=== PATIENT | male | born 1990 ===

== ENCOUNTER 2024-05-02 15:23 | Inpatient (IN) | payer MEDICAID, OTHER, SELFPAY ==
[2024-05-02 15:30] VITALS: BP 122/68; BP 133/82; PULSE 78; PULSE 86; RESP 18; TEMP 36.8; O2SAT 100; O2SAT 96; BMI 25.1
[2024-05-02 15:44] VITALS: RESP 16
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
[2024-05-02 16:00] LABS: Appearance Urine Clear; Color Urine Yellow; Glucose Urine UA Negative (Negative); Leukocyte Esterase Urine Negative (Negative); Nitrite Urine Negative (Negative); Specific Gravity - Urine 1.025 (1.005-1.025); Urine Blood Negative (Negative); Urine Ketones Trace mg/dL (Negative); Urine Protein Negative (Neg-Trace)
[2024-05-02 16:09] LABS: Amphetamine Screen Urine Not Detected (Not Detect); Barbiturates, Urine Not Detected (Not Detect); Benzodiazepines Screen Urine Not Detected (Not Detect); Buprenorphine Scr Not Detected (Not Detect); Cannabinoid Screen Urine Not Detected (Not Detect); Cocaine Screen Urine Not Detected (Not Detect); Fentanyl, urine Not Detected (Not Detect); Methadone Screen, Urine Not Detected (Not Detect); Opiate Screen Urine Not Detected (Not Detect); Oxycodone Screen Urine Not Detected (Not Detect); Phencyclidine Screen Urine Not Detected (Not Detect)
[2024-05-02 16:15] LABS: MANUAL DIFF FLAG NO
[2024-05-02 16:23] LABS: Basophils Percent Auto 0.5 % (0-2); Eosinophils Absolute Auto 0.2 X10*3/uL (0.0-0.4); Eosinophils Percent Auto 2.1 % (0-4); Hematocrit 42.9 % (42.0-52.0); Hemoglobin 15.4 g/dl (14.0-18.0); Imm Gran Abs Auto 0.04 X10*3/uL (0.00-0.03); Imm Gran Pct Auto 0.5 % (0.0-0.4); Lymphocytes Percent Auto 23.8 % (20-40); Mean Corpuscular HGB Conc 35.9 g/dl (31.0-36.0); Mean Corpuscular Hemoglobin 32.6 pg (27.0-33.0); Mean Corpuscular Volume 90.9 fL (80.0-98.0); Mean Platelet Volume 11.6 fL (9.4-12.4); Monocytes Absolute Auto 0.8 X10*3/uL (0.1-1.2); Monocytes Percent Auto 9.4 % (2-11); Neutrophils Absolute Auto 5.2 x10*3/uL (2.0-8.3); Neutrophils Percent Auto 63.7 % (45-73); Platelet Count 289 X10*3/uL (160-400); Red Blood Count 4.72 X10*6/uL (4.60-5.80); Red Cell Distribution Width 12.6 % (11.0-16.0); White Blood Count 8.2 X10*3/uL (4.8-10.8)
[2024-05-02 16:48] LABS: Alanine Aminotransferase 22 U/L (0-40); Albumin Level 4.3 g/dL (3.5-5.0); Alkaline Phosphatase 64 U/L (39-117); Anion Gap 12 (12-20); Aspartate Amino Transferase 31 U/L (5-37); Bilirubin Total 0.2 mg/dL (0.0-1.0); Blood Urea Nitrogen 21 mg/dL (9-16); Calcium 10.3 mg/dL (8.4-10.2); Carbon Dioxide 28 mmol/L (22-29); Chloride 103 mmol/L (96-108); Creatinine Clr Calc Pharmacy 98.3; Estimated Glomerular Filt Rate > 60; Ethanol < 10 mg/dL; Glucose Random 97 mg/dL (60-115); Potassium 4.1 mmol/L (3.3-5.1); Sodium 139 mmol/L (135-145); Total Protein 7.4 g/dL (6.5-8.0)
--- NOTE | 2024-05-02 18:39 | ED.PSYCH ---
HPI - Psych General Chief Complaint: Psychiatric Symptoms Stated Complaint: Section 12 SI, [facility] [place] [facility] Time Seen by Provider: 05/02/24 16:03 Source: patient Mode of arrival: EMS Limitations: no limitations History of Present Illness HPI Narrative: Patient is a 33-year-old male who presents to the emergency department via EMS on a section 12 by N in the community; [facility], has been experiencing increasing suicidal ideations endorsing a plan to hang himself, also reporting auditory hallucinations telling him to ?pop people's car tires?. He is calm and cooperative, denies any physical complaints. Reports compliance with his medications, he is feeling unsafe, and requesting to go inpatient Related Data Home Medications ?Medication ?Instructions ?Recorded ?Confirmed clonidine HCl 0.1 mg tablet 0.1 mg PO DAILY PRN anxiety 05/02/24 05/02/24 diphenhydramine HCl 25 mg capsule 50 mg PO DAILY insomnia 05/02/24 05/02/24 (Banophen) divalproex 500 mg tablet,delayed 500 mg PO BID depressive disorder 05/02/24 05/02/24 release (Depakote) lorazepam 0.5 mg tablet 0.5 mg PO DAILY anxiety attack 05/02/24 05/02/24 Allergies Allergy/AdvReac Type Severity Reaction Status Date / Time aspirin Allergy Unknown hives Verified 05/02/24 15:36 Review of Systems Review of Systems: Yes all other systems are reviewed and are negative [facility] Past Medical History Attestation statement: The following information was validated with the patient. Source: old records reviewed Social History Social History Smoked in Last 30 Days: Yes Use of substances other than those prescribed or required for medical reasons: No Advance Directives: No Advance Directives Information Provided: No Physical Exam Vital Signs: Vital Signs: Last Vital Signs Temp 98.2 F 05/02/24 15:30 Pulse 78 05/02/24 15:30 Resp 16 05/02/24 15:44 BP 122/68 05/02/24 15:30 Pulse Ox 96 05/02/24 15:30 O2 Del Method Room Air 05/02/24 15:30 BMI result Body Mass Index 25.1 Appearance: Alert.?Oriented to person, place and time. No acute distress.?Normal affect. Eyes: Pupils equal, round and reactive to light.? ENT: Pharynx normal.?? Neck: Normal inspection.? Neck supple.?? CVS: Heart sounds normal. Normal heart rate and rhythm.? Pulses normal.?? Respiratory: No respiratory distress.? Lung sounds clear to auscultation bilaterally?? Abdomen: Soft and non-tender. Normoactive bowel sounds.? Skin: Skin warm and dry.? Normal skin color.? ? Extremities: No lower extremity edema. Neuro: Moves all extremities spontaneously. Sensation intact bilaterally. CN II-XII intact. No focal neuro deficits. Ambulates with normal steady gait. Medical Decision Making Medical Decision Making [facility] Narrative: Patient is a 33-year-old male who presents emergency department for evaluation, on a section 12 for suicidal ideations as per HPI. Overall he is calm and cooperative, vital signs are stable nontoxic in appearance. He offers no physical complaints in his physical examination is benign. Plan to obtain serum labs for medical clearance. Patient was evaluated by N in the community and has already been made an inpatient bed search. Differential Diagnosis Differential Diagnoses: The differential diagnosis associated with the presentation includes (Suicidal ideations, hallucinations) Admission/Observation Consideration of admission/observation: Escalation of care including admission/observation considered Placed in physician observation so that bed search can ensue; 18:45, speaking clear full sentences, no respiratory distress, vitals stable. Consult Healthcare Provider Management of the patient was discussed with: Behavioral Health Provider (See narrative above) Lab Data [facility] Lab Attestation statement: I reviewed the patient's lab results. CBC is without leukocytosis anemia or thrombocytopenia. No electrolyte derangement. Mildly elevated BUN, creatinine within normal range, encouraging oral fluids. Urinalysis without evidence of infection. MEJIA negative alcohol level not detectable. 05/02/24 16:11 05/02/24 16:11 Labs: Lab Results 05/02/24 05/02/24 Range/Units 15:47 16:11 WBC 8.2 (4.8-10.8) X10*3/uL RBC 4.72 (4.60-5.80) X10*6/uL Hgb 15.4 (14.0-18.0) g/dl Hct 42.9 (42.0-52.0) % MCV 90.9 (80.0-98.0) fL MCH 32.6 (27.0-33.0) pg MCHC 35.9 (31.0-36.0) g/dl RDW 12.6 (11.0-16.0) % Plt Count 289 (160-400) X10*3/uL MPV 11.6 (9.4-12.4) fL Immature Gran % (Auto) 0.5 H (0.0-0.4) % Neut % (Auto) 63.7 (45-73) % Lymph % (Auto) 23.8 (20-40) % [place] % (Auto) 9.4 (2-11) % Eos % (Auto) 2.1 (0-4) % Baso % (Auto) 0.5 (0-2) % Lymph # (Auto) 2.0 (1.2-4.9) X10*3/uL [place] # (Auto) 0.8 (0.1-1.2) X10*3/uL Eos # (Auto) 0.2 (0.0-0.4) X10*3/uL Baso # (Auto) 0.0 (0.0-0.2) X10*3/uL Abs Immat Gran (auto) 0.04 H (0.00-0.03) X10*3/uL Absolute Neuts (auto) 5.2 (2.0-8.3) x10*3/uL Absolute Nucleated RBC 0.000 (0.0-0.012) X10*3/uL Nucleated RBC % (auto) 0.0 (0.0-0.2) /100WBC Sodium 139 (135-145) mmol/L Potassium 4.1 (3.3-5.1) mmol/L Chloride 103 (96-108) mmol/L Carbon Dioxide 28 (22-29) mmol/L Anion Gap 12 (12-20) BUN 21 H (9-16) mg/dL Creatinine 0.98 (0.5-1.4) mg/dL Estim Creat Clear Calc 98.3 Estimated GFR > 60 Random Glucose 97 (60-115) mg/dL Calcium 10.3 H (8.4-10.2) mg/dL Total Bilirubin 0.2 (0.0-1.0) mg/dL AST 31 (5-37) U/L ALT 22 (0-40) U/L Alkaline Phosphatase 64 (39-117) U/L Total Protein 7.4 (6.5-8.0) g/dL Albumin 4.3 (3.5-5.0) g/dL Urine Color Yellow Urine Appearance Clear Urine pH 6.0 (5.0-9.0) Ur Specific [place] 1.025 (1.005-1.025) Urine Protein Negative (Neg-Trace) mg/dL Urine Glucose (UA) Negative (Negative) mg/dL Urine Ketones Trace (Negative) mg/dL Urine Blood Negative (Negative) Urine Nitrite Negative (Negative) Ur Leukocyte Esterase Negative (Negative) Urine Opiates Screen Not Detected (Not Detect) Ur Buprenorphine Scrn Not Detected (Not Detect) ng/mL Ur Oxycodone Screen Not Detected (Not Detect) ng/mL Urine Methadone Screen Not Detected (Not Detect) ng/mL Urine Fentanyl Screen Not Detected (Not Detect) Ur Barbiturates Screen Not Detected (Not Detect) Ur Phencyclidine Scrn Not Detected (Not Detect) Ur Amphetamines Screen Not Detected (Not Detect) U Benzodiazepines Scrn Not Detected (Not Detect) Urine Cocaine Screen Not Detected (Not Detect) U Marijuana (THC) Screen Not Detected (Not Detect) Ethyl Alcohol < 10 mg/dL Independent Historian Clinical information obtained from an independent historian. History obtained from or confirmed by: EMS Discharge Plan Discharge Clinical Impression: Suicidal ideation Patient Disposition: Still a Patient Prescriptions: No Action clonidine HCl 0.1 mg tablet 0.1 mg PO DAILY PRN (Reason: anxiety) divalproex [Depakote] 500 mg tablet,delayed release (DR/EC) 500 mg PO BID lorazepam 0.5 mg tablet 0.5 mg PO DAILY diphenhydramine HCl [Banophen] 25 mg capsule 50 mg PO DAILY Interventions: [place]-Suicide Risk Severity Scale Last Done: 05/02/24 15:44 Print Language: Divehi
[2024-05-03 06:30] VITALS: BP 121/53; PULSE 57; TEMP 36.8; O2SAT 100
[2024-05-03] MEDS: Divalproex Sodium 500 MG TABLET.DR PO ×2 (09:14→20:52)
[2024-05-03] MEDS: LORazepam 0.5 MG TABLET PO (09:14)
[2024-05-03] MEDS: diphenhydrAMINE HCL 25 MG CAPSULE 50 MG PO (09:14)
--- NOTE | 2024-05-03 12:50 | PC.NURSE ---
patient seen yesterday by PINEDA and made section 12 inpatient bedsearch
[2024-05-03 15:31] VITALS: BP 160/55; PULSE 75; RESP 18; TEMP 36.6; O2SAT 100
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
[2024-05-03 19:43] VITALS: BP 129/66; PULSE 82; RESP 18; O2SAT 97
[2024-05-03] MEDS: traZODone HCL 50 MG TABLET PO (20:52)
[2024-05-04 07:00] VITALS: BMI 33.6
[2024-05-04 08:00] VITALS: BP 125/70; PULSE 70; RESP 16; TEMP 36.6; O2SAT 99
[2024-05-04 08:30] LABS: Estimated Average Glucose 105 mg/dL; Hemoglobin A1c % 5.3 % (<6.0)
[2024-05-04 08:41] LABS: Cholesterol 158 mg/dL (<200); HDL Cholesterol 44 mg/dL (>40); LDL Cholesterol Calculated 91 mg/dL (<100); Triglycerides 116 mg/dL (<150)
[2024-05-04] MEDS: LORazepam 0.5 MG TABLET PO (09:16)
[2024-05-04] MEDS: diphenhydrAMINE HCL 25 MG CAPSULE 50 MG PO (09:16)
[2024-05-04] MEDS: Divalproex Sodium 500 MG TABLET.DR PO ×2 (09:16→21:57)
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
[2024-05-04 20:00] VITALS: BP 120/76; PULSE 85; TEMP 37.1; O2SAT 98
[2024-05-04] MEDS: traZODone HCL 50 MG TABLET PO (21:57)
[2024-05-05 08:00] VITALS: BP 123/65; PULSE 64; RESP 16; TEMP 36.5; O2SAT 100
[2024-05-05] MEDS: diphenhydrAMINE HCL 25 MG CAPSULE 50 MG PO (10:22)
[2024-05-05] MEDS: LORazepam 0.5 MG TABLET PO (10:22)
[2024-05-05] MEDS: Divalproex Sodium 500 MG TABLET.DR PO ×2 (10:23→20:48)
--- NOTE | 2024-05-05 17:43 | P.PNPSI_ITS ---
Subjective Subjective Date of Service: 05/05/24 Reason For Visit: Depression Subjective Notes: Conditional Voluntary Healthcare Proxy: No Guardianship: No Medical Problems Affecting Mental Status: No Interim History: Pt spending time in bed today. Declines to meet with team and risk specialist. Denies questions about treatment, sx, concerns. I feel comfortable. Declines med review for improved sx mgt of agitation/aggression. Medication Compliance: Yes Side effects from medications: No Attending Groups: No Review of Systems Acute medical concerns: No Medical Review of Systems: unchanged Review of Systems Review of Systems Yes all other systems are reviewed and are negative (denies) Mental Status Exam Mental Status Exam Patient Appearance: Appropriate Patient Orientation: Person, Place, Time and Situation Level of Consciousness: Alert Patient Behavior: Guarded, Talkative, Cooperative, Suspicious, Anxious, Resistive to Care, Avoidant, Isolative and Good Eye Contact Mood Description: Constricted Affect Description: Constricted Patient Cognition Impaired: Yes Ability to Follow Directions: Good Speech Pattern: Spontaneous Speech and Soft-Spoken Memory Description: Episodic Impaired Delusions: Paranoid Ideation Perceptual Disturbances: Depersonalization and Derealization Thought Process: Distracted and Rumination Thought Content: positive for [place], positive for Suicidal Ideation (denies) and positive for Homicidal Ideation (denies) Depressive Symptoms: Diff. Making Decisions and Low Self Esteem Judgement: Fair Diagnostics Vital Signs (24Hr): Vital Signs - 24 hr 05/04/24 20:00 Temperature 98.7 F Pulse Rate 85 Blood Pressure 120/76 Pulse Oximetry 98 Oxygen Delivery Method Room Air BMI result Body Mass Index 33.6 Labs 05/02/24 16:11 05/02/24 16:11 Labs: Laboratory Results - last 48 hr 05/04/24 08:04 Estimat Average Glucose 105 Hemoglobin A1c % 5.3 Triglycerides 116 Cholesterol 158 LDL Cholesterol, Calc 91 HDL Cholesterol 44 Medications Medications Current Medications Acetaminophen (Acetaminophen 325 Mg Tablet) 650 mg PO Q6H PRN PRN Reason: Headache/Pain Mild Scale (1-3) Al Hydroxide/Mg Hydroxide (Magnesium Hydrox/Alum Hydrox 30 Ml Oral.Susp) 30 ml PO Q6H PRN PRN Reason: Heartburn/Nausea Clonidine HCl (Clonidine Hcl 0.1 Mg Tablet) 0.1 mg PO DAILY PRN; Protocol PRN Reason: anxiety Diphenhydramine HCl (Diphenhydramine Hcl 25 Mg Capsule) 50 mg PO DAILY LIZA Last Admin: 05/05/24 10:22 Dose: 50 mg Divalproex Sodium (Divalproex Sodium 500 Mg Tablet.Dr) 500 mg PO BID [facility] Last Admin: 05/05/24 10:23 Dose: 500 mg Hydroxyzine HCl (Hydroxyzine Hcl 25 Mg Tablet) 25 mg PO Q6H PRN PRN Reason: Anxiety Lorazepam (Lorazepam 0.5 Mg Tablet) 0.5 mg PO DAILY [facility] Last Admin: 05/05/24 10:22 Dose: 0.5 mg Magnesium Hydroxide (Milk Of Magnesia 30 Ml Oral.Susp) 30 ml PO DAILY PRN PRN Reason: Constipation Nicotine (Nicotine 21 Mg Patch.Td24) 21 mg TRANSDERMA DAILY PRN PRN Reason: smoking cessation Nicotine Polacrilex (Nicotine Polacrilex 2 Mg Gum) 4 mg BUCCAL Q2H PRN PRN Reason: Nicotine Cravings Olanzapine (Olanzapine 5 Mg Tablet) 5 mg PO TID PRN PRN Reason: agitation Trazodone HCl (Trazodone Hcl 50 Mg Tablet) 50 mg PO BEDTIME MRX1 PRN PRN Reason: Insomnia Last Admin: 05/04/24 21:57 Dose: 50 mg Allergies Allergies Allergy/AdvReac Type Severity Reaction Status Date / Time aspirin Allergy Unknown hives Verified 05/02/24 15:36 Assessment & Plan Assessment & Plan (1) Schizoaffective disorder: Status: Acute Code(s): F25.9 - Schizoaffective disorder, unspecified (2) PTSD (post-traumatic stress disorder): Status: Acute Code(s): F43.10 - Post-traumatic stress disorder, unspecified (3) Polysubstance use disorder: Status: Acute Code(s): F19.90 - Other psychoactive substance use, unspecified, uncomplicated Plan 05/05/24: Valproate level 05/06. Continue to encourage engagement in treatment. Patient educated on: therapeutic strategies Informed Consent: further education needed Reason for continued inpatient stay Substantial Risk for: harm to self, harm to others and rapid decompensation Time Spent With Patient Time: Total time managing care of this patient today ____ minutes.
[2024-05-05 20:00] VITALS: BP 128/91; PULSE 89; RESP 18; TEMP 37.1; O2SAT 100
[2024-05-05] MEDS: OLANZapine 5 MG TABLET PO (20:48)
[2024-05-05] MEDS: hydrOXYzine HCL 25 MG TABLET PO (20:48)
[2024-05-05] MEDS: traZODone HCL 50 MG TABLET PO (20:48)
[2024-05-06 08:00] VITALS: BP 112/56; PULSE 62; RESP 18
[2024-05-06] MEDS: LORazepam 0.5 MG TABLET PO (08:13)
[2024-05-06] MEDS: Divalproex Sodium 500 MG TABLET.DR PO ×2 (08:13→21:20)
[2024-05-06] MEDS: diphenhydrAMINE HCL 25 MG CAPSULE 50 MG PO (08:13)
--- NOTE | 2024-05-06 09:48 | P.PNPSI_ITS ---
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 When asked how his mood was he said no and that it was a miracle he did not throw something when he was woken up earlier today with labs. Patient says he has auditory hallucinations but does not think anything is going to help. However he was willing to retry Risperdal. Mental Status Exam Mental Status Exam Patient Appearance: Appropriate Patient Orientation: Person, Place, Time and Situation Level of Consciousness: Alert Patient Behavior: Guarded, Talkative, Cooperative, Suspicious, Anxious, Resistive to Care, Avoidant, Isolative and Good Eye Contact Mood Description: Constricted Affect Description: Constricted Patient Cognition Impaired: Yes Ability to Follow Directions: Good Speech Pattern: Spontaneous Speech Memory Description: Episodic Impaired Hallucinations: Auditory Delusions: Paranoid Ideation Perceptual Disturbances: Depersonalization and Derealization Thought Process: Distracted and Rumination Thought Content: positive for [place], positive for Suicidal Ideation (denies) and positive for Homicidal Ideation (denies) Depressive Symptoms: Diff. Making Decisions and Low Self Esteem Judgement and Insight: Impaired Diagnostics Vital Signs (24Hr): Vital Signs - 24 hr 05/05/24 20:00 05/06/24 08:00 Temperature 98.7 F Pulse Rate 89 62 Respiratory Rate 18 18 Blood Pressure 128/91 H 112/56 L Pulse Oximetry 100 Oxygen Delivery Method Room Air BMI result Body Mass Index 33.6 Labs 05/02/24 16:11 05/02/24 16:11 Medications Medications Current Medications Acetaminophen (Acetaminophen 325 Mg Tablet) 650 mg PO Q6H PRN PRN Reason: Headache/Pain Mild Scale (1-3) Al Hydroxide/Mg Hydroxide (Magnesium Hydrox/Alum Hydrox 30 Ml Oral.Susp) 30 ml PO Q6H PRN PRN Reason: Heartburn/Nausea Clonidine HCl (Clonidine Hcl 0.1 Mg Tablet) 0.1 mg PO DAILY PRN; Protocol PRN Reason: anxiety Diphenhydramine HCl (Diphenhydramine Hcl 25 Mg Capsule) 50 mg PO DAILY [facility] Last Admin: 05/06/24 08:13 Dose: 50 mg Divalproex Sodium (Divalproex Sodium 500 Mg Tablet.Dr) 500 mg PO BID [facility] Last Admin: 05/06/24 08:13 Dose: 500 mg Hydroxyzine HCl (Hydroxyzine Hcl 25 Mg Tablet) 25 mg PO Q6H PRN PRN Reason: Anxiety Last Admin: 05/05/24 20:48 Dose: 25 mg Lorazepam (Lorazepam 0.5 Mg Tablet) 0.5 mg PO DAILY [facility] Last Admin: 05/06/24 08:13 Dose: 0.5 mg Magnesium Hydroxide (Milk Of Magnesia 30 Ml Oral.Susp) 30 ml PO DAILY PRN PRN Reason: Constipation Nicotine (Nicotine 21 Mg Patch.Td24) 21 mg TRANSDERMA DAILY PRN PRN Reason: smoking cessation Nicotine Polacrilex (Nicotine Polacrilex 2 Mg Gum) 4 mg BUCCAL Q2H PRN PRN Reason: Nicotine Cravings Olanzapine (Olanzapine 5 Mg Tablet) 5 mg PO TID PRN PRN Reason: agitation Last Admin: 05/05/24 20:48 Dose: 5 mg Trazodone HCl (Trazodone Hcl 50 Mg Tablet) 50 mg PO BEDTIME MRX1 PRN PRN Reason: Insomnia Last Admin: 05/05/24 20:48 Dose: 50 mg Allergies Allergies Allergy/AdvReac Type Severity Reaction Status Date / Time aspirin Allergy Unknown hives Verified 05/02/24 15:36 Assessment & Plan Assessment & Plan (1) Schizoaffective disorder: Status: Acute Code(s): F25.9 - Schizoaffective disorder, unspecified (2) PTSD (post-traumatic stress disorder): Status: Acute Code(s): F43.10 - Post-traumatic stress disorder, unspecified (3) Polysubstance use disorder: Status: Acute Code(s): F19.90 - Other psychoactive substance use, unspecified, uncomplicated Plan 05/05/24: Valproate level 05/06. Continue to encourage engagement in treatment. 05/06 Patient intermittently irritable. When asked how his mood was he said no and that it was a miracle he did not throw something when he was woken up earlier today with labs. Patient says he has auditory hallucinations but does not think anything is going to help. However he was willing to retry Risperdal. -start Risperdal 1 mg b.i.d. Patient educated on: diagnosis and medication risk/benefits Informed Consent: understands, does not understand and further education needed Reason for continued inpatient stay Substantial Risk for: rapid decompensation Time Spent With Patient Time: Total time managing care of this patient today ____ minutes.
[2024-05-06] MEDS: risperiDONE 1 MG TABLET PO (21:20)
[2024-05-06] MEDS: traZODone HCL 50 MG TABLET PO (21:20)
[2024-05-07] MEDS: diphenhydrAMINE HCL 25 MG CAPSULE 50 MG PO (09:32)
[2024-05-07] MEDS: LORazepam 0.5 MG TABLET PO (09:32)
[2024-05-07] MEDS: risperiDONE 1 MG TABLET PO (09:32)
[2024-05-07] MEDS: Divalproex Sodium 500 MG TABLET.DR PO ×2 (09:32→21:02)
--- NOTE | 2024-05-07 13:24 | HO.PSYCHPN ---
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 Talked about risperdal; said he's been on before and ok with increasing dose. Had AH last night and got in arguement w/ patient but says not today so far. Mental Status Exam Mental Status Exam Patient Appearance: Appropriate Patient Orientation: Person, Place, Time and Situation Level of Consciousness: Alert Patient Behavior: Guarded, Talkative, Cooperative, Suspicious, Anxious, Resistive to Care, Avoidant, Isolative and Good Eye Contact Mood Description: Constricted Affect Description: Constricted Patient Cognition Impaired: Yes Ability to Follow Directions: Good Speech Pattern: Spontaneous Speech Memory Description: Episodic Impaired Hallucinations: Auditory Delusions: Paranoid Ideation Perceptual Disturbances: Depersonalization and Derealization Thought Process: Distracted and Rumination Thought Content: positive for [place], positive for Suicidal Ideation (denies) and positive for Homicidal Ideation (denies) Depressive Symptoms: Diff. Making Decisions and Low Self Esteem Judgement and Insight: Impaired Diagnostics Vital Signs (24Hr): BMI result Body Mass Index 33.6 Labs 05/02/24 16:11 05/02/24 16:11 Medications Medications Current Medications Acetaminophen (Acetaminophen 325 Mg Tablet) 650 mg PO Q6H PRN PRN Reason: Headache/Pain Mild Scale (1-3) Al Hydroxide/Mg Hydroxide (Magnesium Hydrox/Alum Hydrox 30 Ml Oral.Susp) 30 ml PO Q6H PRN PRN Reason: Heartburn/Nausea Clonidine HCl (Clonidine Hcl 0.1 Mg Tablet) 0.1 mg PO DAILY PRN; Protocol PRN Reason: anxiety Diphenhydramine HCl (Diphenhydramine Hcl 25 Mg Capsule) 50 mg PO DAILY [facility] Last Admin: 05/07/24 09:32 Dose: 50 mg Divalproex Sodium (Divalproex Sodium 500 Mg Tablet.Dr) 500 mg PO BID [facility] Last Admin: 05/07/24 09:32 Dose: 500 mg Hydroxyzine HCl (Hydroxyzine Hcl 25 Mg Tablet) 25 mg PO Q6H PRN PRN Reason: Anxiety Last Admin: 05/05/24 20:48 Dose: 25 mg Lorazepam (Lorazepam 0.5 Mg Tablet) 0.5 mg PO DAILY [facility] Last Admin: 05/07/24 09:32 Dose: 0.5 mg Magnesium Hydroxide (Milk Of Magnesia 30 Ml Oral.Susp) 30 ml PO DAILY PRN PRN Reason: Constipation Nicotine (Nicotine 21 Mg Patch.Td24) 21 mg TRANSDERMA DAILY PRN PRN Reason: smoking cessation Nicotine Polacrilex (Nicotine Polacrilex 2 Mg Gum) 4 mg BUCCAL Q2H PRN PRN Reason: Nicotine Cravings Olanzapine (Olanzapine 5 Mg Tablet) 5 mg PO TID PRN PRN Reason: agitation Last Admin: 05/05/24 20:48 Dose: 5 mg Risperidone (Risperidone 1 Mg Tablet) 1 mg PO BID [facility] Last Admin: 05/07/24 09:32 Dose: 1 mg Trazodone HCl (Trazodone Hcl 50 Mg Tablet) 50 mg PO BEDTIME MRX1 PRN PRN Reason: Insomnia Last Admin: 05/06/24 21:20 Dose: 50 mg Allergies Allergies Allergy/AdvReac Type Severity Reaction Status Date / Time aspirin Allergy Unknown hives Verified 05/02/24 15:36 Assessment & Plan Assessment & Plan (1) Schizoaffective disorder: Status: Acute Code(s): F25.9 - Schizoaffective disorder, unspecified (2) PTSD (post-traumatic stress disorder): Status: Acute Code(s): F43.10 - Post-traumatic stress disorder, unspecified (3) Polysubstance use disorder: Status: Acute Code(s): F19.90 - Other psychoactive substance use, unspecified, uncomplicated Plan 05/05/24: Valproate level 05/06. Continue to encourage engagement in treatment. 05/06 Patient intermittently irritable. When asked how his mood was he said no and that it was a miracle he did not throw something when he was woken up earlier today with labs. Patient says he has auditory hallucinations but does not think anything is going to help. However he was willing to retry Risperdal. -start Risperdal 1 mg b.i.d. 05/07 irritable; AH; agrees to increase risperdal Patient educated on: diagnosis and medication risk/benefits Informed Consent: understands Reason for continued inpatient stay Substantial Risk for: rapid decompensation Time Spent With Patient Time: Total time managing care of this patient today ____ minutes.
[2024-05-07 20:00] VITALS: BP 126/65; PULSE 86; TEMP 36.4; O2SAT 98
[2024-05-07] MEDS: traZODone HCL 50 MG TABLET PO (21:02)
[2024-05-07] MEDS: risperiDONE 2 MG TABLET PO (21:02)
[2024-05-08 08:00] VITALS: BP 128/68; PULSE 67; RESP 16; TEMP 36.3; O2SAT 99
--- NOTE | 2024-05-08 14:39 | MHC.RECOVRN ---
AUDIT-C Brief Intervention Pt had positive screen for unhealthy alcohol use on admission. Attempted to meet with pt to discuss alcohol use and offer resources, pt declined.
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
[2024-05-08] MEDS: OLANZapine 5 MG TABLET PO (17:19)
[2024-05-08] MEDS: hydrOXYzine HCL 25 MG TABLET PO (17:19)
[2024-05-08 20:00] VITALS: BP 172/104; PULSE 92; TEMP 36.9
[2024-05-09 08:00] VITALS: BP 138/83; PULSE 67; RESP 16; TEMP 36.3; O2SAT 99
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
== END 2024-05-09 09:48 | disposition other institution (70) | DRG 750 ==
LOC: HO.ED 05-03 07:09 → HO.PM5 05-03 15:04
PROVIDERS: Internal Medicine; Admitting Provider Psychiatry & Neurology Psychiatry; Emergency Provider Emergency Medicine Emergency Medical Services; Visit Provider Clinical Nurse Specialist Psychiatric/Mental Health, Adult
DX: F25.9 Schizoaffective disorder, unspecified (principal); R45.851 Suicidal ideations; F17.210 Nicotine dependence, cigarettes, uncomplicated; F43.10 Post-traumatic stress disorder, unspecified; F19.90 Other psychoactive substance use, unspecified, uncomplicated; Z71.6 Tobacco abuse counseling; Z59.01 Sheltered homelessness; Z79.899 Other long term (current) drug therapy
CPT/HCPCS: 36415; 80053; 80061; 80164; 80307; 81003; 83036; 85025; 99285

== ENCOUNTER → 2024-05-03 14:55 | Outpatient (BNV) | payer OTHER, SELFPAY | PROVIDERS: Admitting Provider Psychiatry & Neurology Psychiatry; Emergency Provider Emergency Medicine Emergency Medical Services; Visit Provider Clinical Nurse Specialist Psychiatric/Mental Health, Adult | DX: F25.1 Schizoaffective disorder, depressive type (principal); F43.11 Post-traumatic stress disorder, acute; F19.90 Other psychoactive substance use, unspecified, uncomplicated | CPT/HCPCS: 99231; 99232; 99233 ==